=== PATIENT | female | born 1990 | race American Indian/Alaskan Native ===

== ENCOUNTER 2018-04-07 16:21 | Outpatient (CLI) | payer MEDICAID ==
[2018-04-07 16:32] VITALS: BP 148/72
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
== END 2018-04-07 18:58 | disposition home or self-care (01) ==
LOC: EDSTATUS 17:05 → LDOR 17:19 → TRG 17:20 → LD 18:18 → LDOR 18:58
PROVIDERS: ATTEND Obstetrics & Gynecology
DX: O9A.213 Injury, poisoning and certain other consequences of external causes complicating pregnancy, third trimester (principal); O26.893 Other specified pregnancy related conditions, third trimester; R10.30 Lower abdominal pain, unspecified; Z3A.30 30 weeks gestation of pregnancy
CPT/HCPCS: 59025; 76815